=== PATIENT | male | born 1970 ===

== ENCOUNTER 2017-03-03 11:06 | Emergency (ER) | payer MEDICAID, OTHER ==
[~2017-03-03] VITALS: Ht 170.2 cm; Wt 105.9 kg
[~2017-03-03 11:06] MED LIST: HYDR-4003 PO
[2017-03-03 11:14] VITALS: BP 141/97; PULSE 78; RESP 14; O2SAT 98
--- NOTE | 2017-03-03 11:29 | ED.REPORT ---
HPI-Abd Pain M 40 and Over Date of Service Mar 03, 2017 ED Provider: Ronan Ambrocio DO Pt is a 46 year old male with a hx of hernia around the umbilicus presenting to the ED complaining of abdominal pain onset 4 days ago. 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 He states that he felt a tear as he lifted. Denies any dysuria or any other symptoms at this time. Nursing Notes Stated Complaint: ABDOMINAL PAIN Chief Complaint: Male Abdominal Pain Nursing Notes Reviewed: Yes Allergies: Coded Allergies: ibuprofen (Verified Allergy, Severe, Hives, 06/05/15) ketorolac (Verified Allergy, Intermediate, N/V, abdominal pain, 06/05/15) Scheduled PRN Hydrocodone-Acetaminophen 5-325 mg (Hydrocodone-Acetaminophen 5-325 mg) 1 Each Tablet 1 TABLET PO Q4H PRN PRN For Pain General Time Seen by MD: 11:28 Chief Complaint Abdominal pain Hx Obtained From: Patient Arrived By: Walk-in Sudden in Onset?: Yes Onset Occurred: 4 days ago Symptom Duration: Since onset Progression since Onset: Constant Location: : Diffuse Quality: Painful Severity: Current: Severe Severity: Maximum: Severe Recent Healthcare: No recent doctor visit, No recent hospitalization Similar Sx Previous: No Past Medical History Past Medical History Notes: In ED 02/2015 for ABd Pain and CP w/negative w/u (neg abd CT, labs, CXR, EKG) Past Medical History Reports: GERD Past Surgical History Colonoscopy 2011 - internal hemorrhoids endoscopy in 2011 - gastritis and duodenitis Family History Noncontributory Smoking History Current Every Day Smoker Social History Alcohol Use: Denies alcohol use Drug Use: THC Other Social History: , Local resident Ambulatory Status Independent Review of Systems Constitutional: Denies: Fever GI: Reports: Abdominal pain, Denies: Constipation, Diarrhea, Nausea, Vomiting Male: Denies Dysuria Musculoskeletal: Denies: Back pain Complete sys rev & neg: except as marked. Physical Exam Initial Vital Signs Vital Signs (First) Date Time Temp Pulse Resp B/P Pulse Ox O2 Delivery O2 Flow Rate FiO2 03/03/17 11:14 37.0 78 14 141/97 98 Room Air Initial VS: Reviewed Head / Eyes: Atraumatic, Normocephalic, PERRL ENT: Mucous membranes moist, Conjunctiva normal, No scleral icterus Extremities: Vascular intact, Neuro intact, No swelling, No tenderness Skin: Warm, Dry, No cyanosis Neurologic: Alert, Oriented, Nonfocal Psychiatric: Mood/affect normal, Behavior normal, Normal thought content General/Constitutional: Awake, Alert Distress / Hydration: Positive: Distress moderate Behavior: Positive: Tearful Respiratory / Chest: Breath sounds NL, Breath sounds = bilat, No respiratory distress, No rales, No rhonchi, No wheezing Cardiovascular: Heart rate NL, Regular rhythm, Heart sounds NL, Peripheral circulation NL Abdomen: Atraumatic Tenderness/Guarding/Rebound: Positive: Tender epigastric (Mild) Interpretation & Diagnostics Lab Results Interpretation Result Diagram: 03/03/17 1154 03/03/17 1154 Test 03/03/17 11:39 03/03/17 11:54 Hold Urine Received (Received) White Blood Count 5.3th/mm3 (3.8-10.1) Red Blood Count 4.82mil/mm3 (4.40-5.80) Hemoglobin 13.5g/dL (13.8-17.2) Hematocrit 41.2% (41.0-50.0) Mean Corpuscular Volume 85.5fL (81-100) Mean Corpuscular Hemoglobin 28.0pg (27.0-35.0) Mean Corpuscular Hemoglobin Concent 32.8% (32.0-37.0) Red Cell Distribution Width 13.8% (12.3-15.4) Platelet Count 278bil/L (150-400) Neutrophils (%) (Auto) 66.1% (40-74) Lymphocytes (%) (Auto) 18.0% (14-46) Monocytes (%) (Auto) 11.7% (4-12) Eosinophils (%) (Auto) 3.4% (0-5) Basophils (%) (Auto) 0.4% (0-3) Sodium Level 138mEq/L (134-144) Potassium Level 3.9mEq/L (3.5-5.2) Chloride Level 104mEq/L (97-108) Carbon Dioxide Level 20mmol/L (18-29) Blood Urea Nitrogen 9mg/dL (6-24) Creatinine 0.82mg/dL (0.76-1.27) Estimat Glomerular Filtration Rate 107mL/min (>59) Glucose Level 102mg/dL (60-99) Calcium Level 8.1mg/dL (8.5-10.1) Magnesium Level 2.0mg/dL (1.6-2.6) Total Bilirubin 0.4mg/dL (0.0-1.2) Aspartate Amino Transf (AST/SGOT) 25U/L (0-50) Alanine Aminotransferase (ALT/SGPT) 20U/L (0-44) Alkaline Phosphatase 86U/L (25-150) Total Protein 6.8g/dL (6.4-8.4) Albumin 3.7g/dL (3.4-5.0) Lipase 31U/L (13-60) Hold Tobar Top Tube Received (Received) CT Abd / Pelvis Interpretation IMPRESSION: 1. No acute abnormality in the abdomen or pelvis is identified. 2. Mild disc degeneration and malalignment lower lumbar spine. 3. Small fat filled periumbilical hernia. 4. Normal appendix is visualized. Dictated by: Cordell Becerra M.D. on 03/03/2017 at 13:17 Study type: Abdominal CT IV contrast Interpretation / Wet Read by: Interpret - Radiologist Re-Eval/Medical Decision Time of Eval: 13:33 Patient Status: Condition improved Re-Evaluation/Progress Note: Discussed CT scan results and plan for discharge. Pt understands and agrees with plan. Counseled Regarding: Diagnosis, Lab results, Need for follow-up, When/why to return to ED Discharge & Departure Primary Impression: Umbilical hernia Disposition: Home Vital Signs - All Vital Signs Date Time Temp Pulse Resp B/P Pulse Ox O2 Delivery O2 Flow Rate FiO2 03/03/17 13:43 37.0 69 14 136/88 98 Room Air 03/03/17 11:14 37.0 78 14 141/97 98 Room Air )( All Prior VS Reviewed: Yes Condition: Improved Additional Instructions: You have a very small hernia at the site of your bellybutton. This should be seen at some point by a surgeon to discuss possibly repairing it. Do not lift anything over 5 pounds. Take Tylenol for pain. Follow-up with your regular doctor. Return to the ER for severe uncontrolled pain, persistent vomiting, or other concerns Referrals: Malina Iverson PA-C (PCP) Scribe Attestation Portions of this note were transcribed by Anusha Sandoval. I, Dr. Ambrocio personally performed the history, physical exam and medical decision-making; I reviewed and confirmed the accuracy of the information in the transcribed note. Signed by: Ariana Samano, 03/03/17 at 1413. copies to: Malina Iverson PA-C, Timothy S DO Mar 03, 2017 11:29 ANUSHA SANDOVAL Mar 03, 2017 11:43
[2017-03-03] MEDS ORDERED: 0.9% Sodium Chloride 1,000 ML IV ONE (11:41)
[2017-03-03] MEDS ORDERED: Ondansetron 2 mg/mL 2 mL Inj IVPUSH PRN (11:45)
[2017-03-03 12:04] LABS: BASOPHILS % (AUTO) 0.4 % (0-3); EOSINOPHILS % (AUTO) 3.4 % (0-5); MONOCYTES % (AUTO) 11.7 % (4-12); Mean Corpuscular Volume 85.5 fL (81-100); NEUTROPHILS % (AUTO) 66.1 % (40-74); Platelet Count 278 bil/L (150-400)
--- NOTE | 2017-03-03 13:26 | DRSVH ---
PROCEDURE: CT ABDOMEN AND PELVIS WITH CONTRAST (PNL-7102) INDICATIONS: abd pain, periumbilical TECHNIQUE: After the administration of intravenous contrast, 5 mm thick sections acquired from the diaphragm to the symphysis. 5 mm coronal and sagittal reformats were acquired. For radiation dose reduction, the following was used: automated exposure control, adjustment of mA and/or kV according to patient siz e. COMPARISON: None. FINDINGS: Image quality: Excellent. ABDOMEN: Lung bases: Bibasilar atelectasis. Heart size is normal. Solid organs: Liver and spleen are normal in size and enhancement. Gallbladder appears normal. Tylor iary system is non dilated. Pancreas enhances normally. No adrenal nodules. Kidneys demonstrate no rmal size and enhancement, without hydronephrosis. Peritoneum and bowel: Bowel loops demonstrate normal wall thickness and caliber. Normal appendix. N o free fluid or air. Nodes and vessels: No retroperitoneal or mesenteric adenopathy by size criteria. Small pre-caval lym ph nodes at the carly hepatis just caudal to the portal vein. Aorta and inferior vena cava are normal in size. Miscellaneous: Small fat filled umbilical hernia. Rectus abdominis muscles show no apparent hematoma or asymmetry. Psoas muscles appear symmetrical and intact. PELVIS: Genitourinary: Bladder wall thickness is normal. Prostate and seminal vesicles appear normal. Miscellaneous: No inguinal hernias or adenopathy. Bones: No suspicious bony lesions. No vertebral body compression fractures. Disc narrowing L4-5 and L5-S1 associated with slight retrolisthesis at both levels. Anterior bony lipping L1-2. Chronic ante rior wedging T12. IMPRESSION: 1. No acute abnormality in the abdomen or pelvis is identified. 2. Mild disc degeneration and malalignment lower lumbar spine. 3. Small fat filled periumbilical hernia. 4. Normal appendix is visualized. Dictated by: Cordell Becerra M.D. on 03/03/2017 at 13:17 Approved by: Cordell Becerra M.D. on 03/03/2017 at 13:24
[2017-03-03 13:43] VITALS: BP 136/88; PULSE 69; RESP 14; O2SAT 98
== END 2017-03-03 13:45 | disposition home or self-care (01) ==
LOC: SED 11:06
DX: K42.9 Umbilical hernia without obstruction or gangrene (principal); X50.0XXA Overexertion from strenuous movement or load, initial encounter; Y92.814 Boat as the place of occurrence of the external cause; Y93.89 Activity, other specified; Y99.0 Civilian activity done for income or pay; K21.9 Gastro-esophageal reflux disease without esophagitis; F17.200 Nicotine dependence, unspecified, uncomplicated
CPT/HCPCS: 36415; 74177; 80053; 83690; 83735; 85025; 96361; 96374; 96375; 99285; J2270; J2405; J7030; Q9967

== ENCOUNTER 2017-03-30 08:09 | Emergency (ER) | payer MEDICAID, OTHER ==
[~2017-03-30] VITALS: Ht 170.2 cm; Wt 102.7 kg
[2017-03-30 08:14] VITALS: BP 159/110; PULSE 61; RESP 20; O2SAT 100
--- NOTE | 2017-03-30 08:20 | ED.REPORT ---
HPI-Abd Pain M 40 and Over Date of Service Mar 30, 2017 ED Provider: Dr. Ambrocio Pt is a 46 year old male with a known umbilical hernia who presents to the ED with complaints for pain with bowel movements. He is due to have this hernia repaired on Friday, but states that he is unable to bear the pain. Pt admits to mild nausea, but denies any vomiting, chest pain, shortness of breath, or any other symptoms. Nursing Notes Stated Complaint: STOMACH PAIN Chief Complaint: Male Abdominal Pain Allergies: Coded Allergies: ibuprofen (Verified Allergy, Severe, Hives, 06/05/15) ketorolac (Verified Allergy, Intermediate, N/V, abdominal pain, 06/05/15) Scheduled PRN Hydrocodone-Acetaminophen 5-325 mg (Hydrocodone-Acetaminophen 5-325 mg) 1 Each Tablet 1 TABLET PO Q4H PRN PRN For Pain Ondansetron ODT (Zofran ODT) 4 Mg Tablet 4 MG PO Q4H PRN PRN For Nausea General Time Seen by MD: 08:19 Chief Complaint Abdominal pain Hx Obtained From: Patient Arrived By: Walk-in Sudden in Onset?: No Location: : Diffuse Quality: Painful Severity: Current: Mild Severity: Maximum: Moderate Similar Sx Previous: Yes Past Medical History Past Medical History Notes: In ED 02/2015 for ABd Pain and CP w/negative w/u (neg abd CT, labs, CXR, EKG) Past Medical History Umbilical hernia Reports: GERD Past Surgical History Colonoscopy 2011 - internal hemorrhoids endoscopy in 2011 - gastritis and duodenitis Family History Noncontributory Smoking History Current Every Day Smoker Social History Alcohol Use: Denies alcohol use Drug Use: THC Other Social History: , Local resident Ambulatory Status Independent Review of Systems Constitutional: Denies: Chills, Fever, Malaise, Weakness - generalized Respiratory: Denies: Non-productive cough, Shortness of breath, Wheezing Cardiovascular: Denies: Chest pain, Syncope GI: Reports: Abdominal pain, Nausea, Denies: Constipation, Diarrhea, Vomiting Male: Denies Dysuria, Denies Flank pain, Denies Urinary frequency, Denies Urinary urgency Musculoskeletal: Denies: Back pain Complete sys rev & neg: except as marked. Physical Exam Initial Vital Signs Vital Signs (First) Date Time Temp Pulse Resp B/P Pulse Ox O2 Delivery O2 Flow Rate FiO2 03/30/17 08:14 36.7 61 20 159/110 100 Room Air Initial VS: Reviewed Head / Eyes: Atraumatic, Normocephalic, PERRL ENT: Mucous membranes moist, Conjunctiva normal, No scleral icterus Neck: Supple, Non-tender, Full range of motion Skin: Warm, Dry, No cyanosis Neurologic: Alert, Oriented, Nonfocal General/Constitutional: Awake, Alert, No acute distress, Well appearing, Well developed Respiratory / Chest: Atraumatic, Breath sounds NL, Breath sounds = bilat Cardiovascular: Heart rate NL, Regular rhythm, Heart sounds NL Abdomen: Atraumatic, Soft, Non-tender No palpable hernia Back: Atraumatic, Inspection NL, Full range of motion Interpretation & Diagnostics Lab Results Interpretation Result Diagram: 03/30/17 0850 03/30/17 0850 Test 03/30/17 08:50 White Blood Count 7.8th/mm3 (3.8-10.1) Red Blood Count 5.17mil/mm3 (4.40-5.80) Hemoglobin 14.2g/dL (13.8-17.2) Hematocrit 43.9% (41.0-50.0) Mean Corpuscular Volume 84.9fL (81-100) Mean Corpuscular Hemoglobin 27.5pg (27.0-35.0) Mean Corpuscular Hemoglobin Concent 32.3% (32.0-37.0) Red Cell Distribution Width 13.3% (12.3-15.4) Platelet Count 331bil/L (150-400) Neutrophils (%) (Auto) 67.6% (40-74) Lymphocytes (%) (Auto) 20.4% (14-46) Monocytes (%) (Auto) 6.4% (4-12) Eosinophils (%) (Auto) 4.5% (0-5) Basophils (%) (Auto) 0.8% (0-3) Sodium Level 140mEq/L (134-144) Potassium Level 4.6mEq/L (3.5-5.2) Chloride Level 103mEq/L (97-108) Carbon Dioxide Level 24mmol/L (18-29) Blood Urea Nitrogen 15mg/dL (6-24) Creatinine 0.86mg/dL (0.76-1.27) Estimat Glomerular Filtration Rate 101mL/min (>59) Glucose Level 99mg/dL (60-99) Calcium Level 8.5mg/dL (8.5-10.1) Magnesium Level 2.1mg/dL (1.6-2.6) Total Bilirubin 0.2mg/dL (0.0-1.2) Aspartate Amino Transf (AST/SGOT) 18U/L (0-50) Alanine Aminotransferase (ALT/SGPT) 15U/L (0-44) Alkaline Phosphatase 92U/L (25-150) Total Protein 7.5g/dL (6.4-8.4) Albumin 3.8g/dL (3.4-5.0) Lipase 44U/L (13-60) CT Abd / Pelvis Interpretation IMPRESSION: 1. Cause of the mid abdominal pain for 3 days is not identified. 2. Review of multiple previous studies showing no cause for abdominal pain. Multiple studies without positive findings suggest possible need for psych consult. Dictated by: Anam Henning M.D. on 03/30/2017 at 10:12 Interpretation / Wet Read by: Interpret - Radiologist Re-Eval/Medical Decision Med Decision/Clinical Course Nonspecific abdominal pain. Workup unremarkable. Patient is discharged on Zofran. Return and follow-up precautions given Source of Hx: Old records Summary of Info: Multiple prior visits for abdominal pain with unremarkable workups Time of Eval: 10:39 Re-Evaluation/Progress Note: Pt is rechecked and informed of his imaging results and the plan to discharge him at this time. He understands and agrees, all questions are addressed. Counseled Regarding: Diagnosis, Need for follow-up, When/why to return to ED Discharge & Departure Primary Impression: Umbilical hernia Obstruction and gangrene presence: without obstruction or gangrene Qualified Code: K42.9 - Umbilical hernia without obstruction or gangrene Disposition: Home Vital Signs - All Vital Signs Date Time Temp Pulse Resp B/P Pulse Ox O2 Delivery O2 Flow Rate FiO2 03/30/17 10:46 36.2 55 118/79 99 Room Air 03/30/17 08:14 36.7 61 20 159/110 100 Room Air )( All Prior VS Reviewed: Yes Condition: Stable Patient Instructions: Acute Abdominal Pain (ED) Additional Instructions: No obvious life-threatening pathology is identified. Use Zofran as prescribed for nausea. Follow-up with your surgeon as planned for further management. Return to the ER as needed if worse. Referrals: Malina Iverson PA-C (PCP) Ariana Attestation Portions of this note were transcribed by Any Gaspar. I, Dr. Ambrocio personally performed the history, physical exam and medical decision-making; I reviewed and confirmed the accuracy of the information in the transcribed note. Signed by: Ariana Mosher, 03/30/2017 10:45 copies to: Malina Iverson PA-C, Timothy S DO Mar 30, 2017 08:19 JAE GASPAR Mar 30, 2017 08:29
[2017-03-30] MEDS ORDERED: 0.9% Sodium Chloride 1,000 ML IV ONE (08:32)
[2017-03-30] MEDS ORDERED: Ondansetron 2 mg/mL 2 mL Inj IVPUSH PRN (08:35)
[2017-03-30] MEDS: HYDROmorphone 0.5 mg/0.5 mL iSecure Syringe IVPUSH PRN ×2 (08:58→09:42)
[2017-03-30 09:13] LABS: BASOPHILS % (AUTO) 0.8 % (0-3); EOSINOPHILS % (AUTO) 4.5 % (0-5); MONOCYTES % (AUTO) 6.4 % (4-12); Mean Corpuscular Hemoglobin 27.5 pg (27.0-35.0); Mean Corpuscular Volume 84.9 fL (81-100); NEUTROPHILS % (AUTO) 67.6 % (40-74); Platelet Count 331 bil/L (150-400)
[2017-03-30 09:33] LABS: Magnesium 2.1 mg/dL (1.6-2.6)
--- NOTE | 2017-03-30 10:21 | DRSVH ---
PROCEDURE: CT ABDOMEN AND PELVIS WITH CONTRAST (PNL-7102) INDICATIONS: abd pain TECHNIQUE: After the administration of intravenous contrast, 5 mm thick sections acquired from the diaphragm to the symphysis. 5 mm coronal and sagittal reformats were acquired. For radiation dose reduction, the following was used: automated exposure control, adjustment of mA and/or kV according to patient siz e. COMPARISON: [facility], CT, ABD/PELVIS W/CON (PNL), 10/09/2012, 13:17. [facility], CT, ABDOMEN/PELVIS WITH CONTRAST, 03/08/2013, 13:30. [facility], CT, ABDOMEN/PELVIS WITH CONTRAS T, 06/27/2013, 12:11. [facility], CT, CT ABD PELVIS W CON, 06/05/2015, 11:33. [facility], CT, CT ABD PELVIS W CON, 09/01/2015, 12:24. [facility], CT, ABD/PELVIS W/C ON (PNL), 02/21/2015, 7:49. [facility], CT, KIDNEY/ URETER/BLADDER, 02/21/2016, 11:36. FINDINGS: Image quality: Good. ABDOMEN: Lung bases: Lung bases show bibasilar subsegmental atelectasis. Heart size is normal. Solid organs: Liver and spleen are normal in size and enhancement. Gallbladder is within normal [place] its. Biliary system is non dilated. Pancreas enhances normally. No adrenal nodules. Kidneys demon strate normal size and enhancement, without hydronephrosis. Peritoneum and bowel: Bowel loops demonstrate normal wall thickness and caliber. No free fluid or a ir. The appendix is normal. Nodes and vessels: No retroperitoneal or mesenteric adenopathy by size criteria. Aorta and inferior vena cava are normal in size. Miscellaneous: No ventral hernias. PELVIS: Genitourinary: Bladder wall thickness is normal. Miscellaneous: No inguinal hernias or adenopathy. Bones: No suspicious bony lesions. No vertebral body compression fractures. IMPRESSION: 1. Cause of the mid abdominal pain for 3 days is not identified. 2. Review of multiple previous studies showing no cause for abdominal pain. Multiple studies without positive findings suggest possible need for psych consult. Dictated by: Anam Henning M.D. on 03/30/2017 at 10:12 Approved by: Anam Henning M.D. on 03/30/2017 at 10:18
[2017-03-30] MEDS ORDERED: ONDA4TAB9 PO (10:36)
[2017-03-30 10:46] VITALS: BP 118/79; PULSE 55; O2SAT 99
== END 2017-03-30 10:44 | disposition home or self-care (01) ==
LOC: SED 08:09
DX: K42.9 Umbilical hernia without obstruction or gangrene (principal); K21.9 Gastro-esophageal reflux disease without esophagitis; F17.200 Nicotine dependence, unspecified, uncomplicated; Z88.6 Allergy status to analgesic agent
CPT/HCPCS: 36415; 74177; 80053; 83690; 83735; 85025; 96361; 96374; 96375; 96376; 99285; J1170; J2405; J7030; Q9967